=== PATIENT | male | born 1960 | race Hispanic/Latino ===

== ENCOUNTER 2018-07-16 03:17 | Emergency (ER) | payer BC ==
[2018-07-16] MEDS ORDERED: TETANUS & DIPHTHERIA TOX,ADULT 0.5 ML VIAL ONE (03:56)
--- NOTE | 2018-07-16 04:13 | EDPHYS ---
Physician Documentation [facility] Name: Serjio Aguillon Jr Age: 57 yrs Sex: Male : 1960 Arrival Date: 07/16/2018 Time: 03:20 Bed 6 Private MD: Tashi Sanderson E ED Physician Silvestre Cheek HPI: 07/16 03:48 This 57 yrs old Male presents to ER via Ambulatory with complaints of Finger gs Injury. 03:48 The patient or guardian reports a laceration, clean, 2 cm(s). The complaints affect the gs dorsal aspect of proximal phalanx of right middle finger. Context: The problem was sustained at home. Onset: The symptoms/episode began/occurred acutely. Modifying factors: The symptoms are alleviated by nothing, the symptoms are aggravated by nothing. Associated signs and symptoms: Pertinent negatives: numbness distally. Severity of symptoms: At their worst the symptoms were mild, in the emergency department the symptoms are unchanged. Historical: - Allergies: 03:38 No Known Allergies; bb - Home Meds: 03:38 None [Active]; bb - PMHx: 03:38 None; bb - PSHx: 03:38 None; bb - Immunization history:: Adult Immunizations not up to date. - Social history:: Smoking status: Patient/guardian denies using tobacco, Patient/guardian denies using alcohol, street drugs. - Ebola Screening: : No symptoms or risks identified at this time. ROS: 03:48 All other systems are negative. gs Exam: 03:48 Constitutional: The patient appears alert, awake. gs 03:48 Musculoskeletal/extremity: ROM: no acute changes, Circulation is intact in all extremities. Sensation intact. 03:48 Skin: injury, laceration(s), the wound is approximately 2 cm(s), with a depth of .05 cm(s), of the dorsal aspect of middle phalanx of right middle finger, that can be described as no foreign body, with mild bleeding, semi [place] flap laceration.. Vital Signs: 03:38 BP 169 / 85; Pulse 78; Resp 16 S; Temp 98.7(O); Pulse Ox 98% on R/A; Weight 95.25 kg bb (R); Height 6 ft. 0 in. (182.88 cm) (R); Pain 0/10; 04:23 BP 152 / 89; Pulse 74; Resp 16; Temp 98.7; Pulse Ox 97% on R/A; Pain 0/10; tl1 03:38 Body Mass Index 28.48 (95.25 kg, 182.88 cm) MDM: 03:47 Patient medically screened. 03:48 Data reviewed: vital signs, nurses notes. Response to treatment: the patient's symptoms gs have markedly improved after treatment. ED course: offered sutured pt said no wants taped and tetanus shot. 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 Exp: tl1 08/07/2020. Lot #: [id number]. } Route: IM; Site: left deltoid; 04:24 Follow up: Response: No adverse reaction; No change in condition tl1 Disposition: 07/16/18 04:13 Discharged to Home. Impression: Laceration without foreign body of right middle finger without damage to nail. - Condition is Stable. - Discharge Instructions: Laceration Care, Adult, Rcfy-ja-Enyc. - Work release form, Medication Reconciliation Form, Thank You Letter, Antibiotic Education, Prescription Opioid Use form. - Follow up: Private Physician; When: 2 - 3 days; Reason: Re-evaluation by your physician. Signatures: Elisabeth Mckeon RN RN Yenny Wallace RN RN 1 Silvestre Cheek MD MD Corrections: (The following items were deleted from the chart) 04:25 04:13 07/16/2018 04:13 Discharged to Home. Impression: Laceration without foreign body tl1 of right middle finger without damage to nail. Condition is Stable. Forms are Work release form, Medication Reconciliation Form, Thank You Letter, Antibiotic Education, Prescription Opioid Use. Follow up: Private Physician; When: 2 - 3 days; Reason: Re-evaluation by your physician. gs
--- NOTE | 2018-07-16 04:13 | ER ---
Nurse's Notes [facility] Name: Serjio Aguillon Jr Age: 57 yrs Sex: Male : 1960 Arrival Date: 07/16/2018 Time: 03:20 Bed 6 Private MD: Tashi Sanderson E Diagnosis: Laceration without foreign body of right middle finger without damage to nail Presentation: 07/16 03:36 Presenting complaint: Patient states: he accidentally cut himself with a box sealing machine feeder to bb the right middle finger approx 60 mins ago. Transition of care: patient was not received from another setting of care. Onset of symptoms was July 16, 2018. Risk Assessment: Do you want to hurt yourself or someone else? Patient reports no desire to harm self or others. Initial Sepsis Screen: Does the patient meet any 2 criteria? No. Patient's initial sepsis screen is negative. Does the patient have a suspected source of infection? No. Patient's initial sepsis screen is negative. Care prior to arrival: None. 03:36 Method Of Arrival: Ambulatory bb 03:36 Acuity: JARON 4 bb Triage Assessment: 03:38 General: Appears in no apparent distress. Behavior is calm, cooperative. Pain: Denies bb pain. EENT: No deficits noted. Neuro: Level of Consciousness is awake, alert, obeys commands, Oriented to person, place, time, situation. Cardiovascular: No deficits noted. Respiratory: Respiratory effort is even, unlabored. GI: No deficits noted. No signs and/or symptoms were reported involving the gastrointestinal system. Derm: Skin is pink, warm \T\ dry. Wound noted dorsal aspect of middle phalanx of right middle finger. Musculoskeletal: Circulation, motion, and sensation intact. Injury Description: Laceration sustained to dorsal aspect of middle phalanx of right middle finger is clean, 0.5 to 2.5 cm long, was sustained 30-60 minutes ago. a small amount of bleeding noted at this time. Historical: - Allergies: 03:38 No Known Allergies; bb - Home Meds: 03:38 None [Active]; bb - PMHx: 03:38 None; bb - PSHx: 03:38 None; bb - Immunization history:: Adult Immunizations not up to date. - Social history:: Smoking status: Patient/guardian denies using tobacco, Patient/guardian denies using alcohol, street drugs. - Ebola Screening: : No symptoms or risks identified at this time. Screenin:41 Abuse screen: Denies threats or abuse. Nutritional screening: No deficits noted. bb Tuberculosis screening: No symptoms or risk factors identified. Fall Risk None identified. Assessment: 03:41 Reassessment: No changes from previously documented assessment. see triage assessment. bb Vital Signs: 03:38 BP 169 / 85; Pulse 78; Resp 16 S; Temp 98.7(O); Pulse Ox 98% on R/A; Weight 95.25 kg bb (R); Height 6 ft. 0 in. (182.88 cm) (R); Pain 0/10; 04:23 BP 152 / 89; Pulse 74; Resp 16; Temp 98.7; Pulse Ox 97% on R/A; Pain 0/10; tl1 03:38 Body Mass Index 28.48 (95.25 kg, 182.88 cm) ED Course: 03:20 Patient arrived in ED. es 03:21 Tashi Sanderson MD is Private Physician. es 03:36 Silvestre Cheek MD is Attending Physician. 03:38 Triage completed. bb 03:38 Arm band placed on Patient placed in an exam room, on a stretcher, on pulse oximetry. bb Family accompanied patient. 03:41 Patient has correct armband on for positive identification. Bed in low position. Call bb light in reach. Adult w/ patient. Pulse ox on. NIBP on. 03:50 Yenny Wallace RN is Primary Nurse. tl1 03:56 No provider procedures requiring assistance completed. Patient did not have IV access tl1 during this emergency room visit. Dressings: 2x2 with coban dressing applied over steri strips. Wound care: to laceration located on dorsal aspect of middle phalanx of right middle finger was cleaned with soap and water. 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 Exp: tl1 08/07/2020. Lot #: [id number]. } Route: IM; Site: left deltoid; 04:24 Follow up: Response: No adverse reaction; No change in condition tl1 Outcome: 04:13 Discharge ordered by . 04:24 Discharged to home ambulatory. tl1 04:24 Condition: good 04:24 Discharge instructions given to patient, family, Instructed on discharge instructions, follow up and referral plans. wound care, Demonstrated understanding of instructions, follow-up care, wound care. 04:25 Patient left the ED. tl1 Signatures: Paty Britt Brenda, RN RN bb Yenny Wallace RN RN tl1 Silvestre Cheek MD MD
== END 2018-07-16 04:25 | disposition home or self-care (01) ==
LOC: ER 03:17
DX: S61.212A Laceration without foreign body of right middle finger without damage to nail, initial encounter (principal); W45.8XXA Other foreign body or object entering through skin, initial encounter; Y93.9 Activity, unspecified; Y92.009 Unspecified place in unspecified non-institutional (private) residence as the place of occurrence of the external cause; Z23 Encounter for immunization
CPT/HCPCS: 90714; 99283

== ENCOUNTER 2020-07-13 06:30 | Day surgery (SDC) | payer BC ==
--- NOTE | 2020-07-09 14:01 | RAD REPORT ---
EXAM DESCRIPTION: RAD - Chest Pa And Lat (2 Views) - 07/09/2020 1:50 pm CLINICAL HISTORY: pre oppatient pending hydro cell surgery, hypertension COMPARISON: February 2015 TECHNIQUE: Frontal and lateral views of the chest were obtained. FINDINGS: The lungs are clear of a peripheral mass consolidation. Interstitial pattern is not substa ntially different when accounting for a slightly more shallow inspiration on the current study. Inter stitial edema or infiltrate not suspected. Pericardial fat noted on the left. Trachea is midline. H eart size is normal and central vasculature is within normal limits. No pleural effusion or pneumoth orax seen. No acute bony finding noted. No aortic abnormality. IMPRESSION: No acute cardiopulmonary process. No significant change from comparison study.
[2020-07-13] MEDS ORDERED: CEFAZOLIN/SWI 1gm 1 GM/10 ML SYR ONE (06:59)
[2020-07-13] MEDS ORDERED: Ringers Lactate 1,000 ML IV ONE (06:59)
[2020-07-13] MEDS ORDERED: FENTANYL CITR 100 MCG/2 ML ONE ×2 (07:33→08:43)
[2020-07-13] MEDS ORDERED: propofoL 200 MG/20 ML VIAL IV ONE (07:33)
[2020-07-13] MEDS ORDERED: MIDAZOLAM HCL 2 MG/2 ML INJ ONE (07:34)
[2020-07-13] MEDS ORDERED: LIDOCAINE 2% MPF 5 ML VIAL ONE (07:34)
[2020-07-13] MEDS ORDERED: BUPIVACAINE 0.25% PF 30 ML VIAL ONE (07:36)
[2020-07-13] MEDS ORDERED: LIDOCAINE 1% MPF 30 ML VIAL ONE (07:36)
[2020-07-13] MEDS ORDERED: ONDANSETRON 4 MG/2 ML VIAL ONE (07:39)
[2020-07-13] MEDS ORDERED: EPHEDRINE SULF 50 MG/ML VIAL ONE (08:22)
[2020-07-13] MEDS ORDERED: BACITRACIN OINTMENT 15 GM TUBE TOP ONE (09:06)
[2020-07-13] MEDS ORDERED: HYDROCODONE/APAP 5/325 MG TAB PO PRN (09:29)
[2020-07-13] MEDS ORDERED: HYDROCODONE/APAP 5/325 MG TAB PO ONE (10:15)
[2020-07-13] MEDS ORDERED: HYDROCODONE/APAP 5/325 MG TAB ONE (10:23)
--- NOTE | 2020-07-13 10:25 | OP ---
Surgeon: ARAMIS LUDWIG Preoperative Diagnosis: Right hydrocele, large size. Postoperative Diagnosis: Right hydrocele, large size. Principal Procedure: Jaboulay hydrocelectomy. Indication For Procedure: Mr. Aguillon is a 59-year-old gentleman, who presented to the Urology Clinic with a massively sized right hydrocele that had been slowly growing over the last several months to years. It was nonpainful to him, though bulky and difficult to manage. As a result, he elected form al hydrocelectomy and presents today for that procedure. Description Of Procedure: The patient was consented in the preoperative holding area before being tr ansferred to the operative suite where general anesthesia was induced. He was given Ancef 1 g IV ant imicrobial prophylaxis and pneumo boots were provided for DVT prophylaxis. His scrotum was shaved an d then prepped using Betadine before being draped in standard fashion. A Meg's line incision was identified in the right hemiscrotum, approximately 3-4 cm in length and 0.25% Marcaine was instilled subcutaneously prior to an incision being made using a 15 blade, deepened through the skin and dermis . Then, using electrocautery, the subcutaneous tissues and dartos layers were divided taking care to divide all of the muscle layers before approaching the parietal layer of tunica vaginalis of the bul ging hydrocele sac. Once the sac had been reached, I then dissected circumferentially around the sac while it was still in situ within the scrotum. I then used an 18-gauge needle to puncture the sac a nteriorly and aspirate several 100 cc of fluid. When this was still slow going and the sac was still too large to be delivered through the incision that was made, I incised the opening even further and more rapidly decompressed the fluid until the hydrocele sac was able to be delivered out of the scro erika sac. I then dissected the remaining cremasteric attachments and dartos layers that were still at taching posteriorly and apically off the parietal layer of tunica vaginalis before incising the remai nder of the sac anteriorly in an anterior-posterior direction revealing the testis within. There was a bit of an unusual configuration and that there were actually 2 sacs with the bulk of the sac actua lly from the testis and a layer of parietal tunica vaginalis still on the anterior surface of the testis. This complex sac was then identified and was removed in its entirety until just the t estis was visible along with the cord structures. Just enough sac was left around the cord structure s in order to folded behind the cord structures and then plicated there. Using a 3-0 Vicryl suture i n a running and every third interlocking fashion, I then ligated the sac behind the cord structures i n a non-compressing fashion of the vascular pedicle. Once this was completely hemostatic, we copious ly irrigated the intrascrotal contents and a careful search for bleeding was undertaken. Any and all bleeding vessels were pinpoint fulgurated using DeBakey forceps and cautery in a bipolar fashion. O nce the area was completely hemostatic, I then delivered the testicle back into the scrotal sac and p laced a quarter-inch Omega drain through the inferior component of the incision well beneath the in cision inferiorly and allowing it to coil within the intrascrotal contents beneath the testis. This was sutured in place using a 3-0 nylon suture, and then the scrotal wall was closed. Initially, in g 3-0 Vicryl suture in a running fashion, the subdartos and cremasteric layers of the scrotum were li gated together and then the skin and subcutaneous tissues were ligated together and closed using 3-0 chromic suture dipped in bacitracin. The skin was closed using a baseball stitch. In the end, the s crotum was completely decompressed and the Omega drain was in place. He was cleansed of the Betadi ne prep and bacitracin was applied to the incision site. A fluff gauze and scrotal support were then applied and the patient was awakened from general anesthesia before being transferred to a stretcher and then to the recovery room in good condition. Complications: None. Discharge Disposition: He will be discharged home and maintain the Omega drain for the next 3-5 da ys before presenting to Urology Clinic to have it extracted. Followup of the pathology hopefully can be presented at that time. CHERELLE/LEIGHTON Voice ID: [id number] Report ID: [id number]
[2020-07-13 11:43] VITALS: BP 128/70; TEMP 96.9; O2SAT 99
--- NOTE | 2020-07-13 18:15 | EKG ---
Test Date: 2020-07-12 Test Time: 12:24:47 Lightning Rod Erector: CATRACHITO MEASUREMENT RESULTS: Intervals: Rate: 92 SD: 150 QRSD: 84 QT: 352 QTc: 435 [place]: P: 66 SD: 150 QRS: 36 T: 50 INTERPRETIVE STATEMENTS: Normal sinus rhythm Normal ECG Compared to ECG 03/15/2015 09:08:56 Sinus bradycardia no longer present Electronically Signed On 07-13-20 18:11:38 RESIDENTIAL SALES MANAGER by Rock Pressley
== END 2020-07-13 10:36 | disposition home or self-care (01) ==
LOC: OR 06:30
PROVIDERS: ATTEND Urology
PROC: 0VB60ZZ Excision of Right Tunica Vaginalis, Open Approach (ICD-10-PCS; principal; 2020-07-13 07:30)
DX: N43.3 Hydrocele, unspecified (principal); I10 Essential (primary) hypertension; M54.9 Dorsalgia, unspecified
CPT/HCPCS: 93005; 88302; 71046; 55040; J2704; J2250; J3010 ×2; J0690; J7120; J2405

== ENCOUNTER 2020-07-22 15:10 | Day surgery (SDC) | payer BC ==
--- NOTE | 2020-07-22 13:11 | RAD REPORT ---
EXAM DESCRIPTION: US - Scrotum Testicles - 07/22/2020 12:45 pm CLINICAL HISTORY: N49.2,Z87.438,Z98.890 COMPARISON: None FINDINGS: Right testicle measures 3.5 x 3.2 x 3.2 centimeters. Echotexture is mildly inhomogeneous. . Mildly increased blood flow Left testicle measures 4.3 x 2.3 x 3.1 centimeters. Echotexture is homogeneous. Normal blood flow 1.3 centimeter left spermatocele. Left epididymis normal blood flow. A 6.7 x 4.7 centimeter complex cystic mass lies superior to the right testicle. It is avascular. Mal tional 3.5 centimeter complex cystic mass inferior to the right testicle IMPRESSION: 6.7 x 4.7 centimeter complex cystic mass superior to the right testicle and 3.5 centimet er complex cystic mass inferior to the right testicle probably subacute hematoma. An inflammatory hyd rocele is another consideration Mildly increased blood flow right testicle may indicate an orchitis
[2020-07-22] MEDS ORDERED: Ringers Lactate 1,000 ML IV ONE (15:42)
[2020-07-22] MEDS ORDERED: CEFTRIAXONE/SWI 2gm 2 GM/20 ML SYR IVP ONE (16:00)
[2020-07-22] MEDS ORDERED: HYDROCODONE/APAP 10/325 TAB ONE (16:00)
[2020-07-22] MEDS ORDERED: BUPIVACAINE 0.25% PF 10 ML VIAL ONE (16:43)
[2020-07-22] MEDS ORDERED: FENTANYL CITR 100 MCG/2 ML ONE ×2 (16:50→17:29)
[2020-07-22] MEDS ORDERED: propofoL 200 MG/20 ML VIAL IV ONE (16:51)
[2020-07-22] MEDS ORDERED: LIDOCAINE 2% MPF 5 ML VIAL ONE (16:52)
[2020-07-22] MEDS ORDERED: KETOROLAC 30 MG/ML INJ ONE (17:23)
[2020-07-22] MEDS ORDERED: dexAMETHasone 10 MG/ML VIAL ONE (17:23)
[2020-07-22 19:07] VITALS: O2SAT 96
[2020-07-22 19:11] VITALS: BP 121/67; TEMP 97.3
--- NOTE | 2020-07-26 11:41 | OP ---
Surgeon: ARAMIS LUDWIG Preoperative Diagnosis: Scrotal hematoma. Postoperative Diagnosis: Scrotal reactive hemorrhagic fluid. Principle Procedures: 1.Right scrotal exploration. 2.Evacuation of fluid. 3.Washout of scrotum. 4.Placement of a closed suction drain. Indication For Procedure: Mr. Aguillon presented to the Urology Clinic in followup this week after und ergoing initial primary right hydrocelectomy on 07/13/2020. He had a Manjeet drain placed following that procedure initially and despite the [place] drain placement, he had some swelling of the right h emiscrotum when he was seen on followup earlier this week. It was nontender, and otherwise healthy-a ppearing, and since they reported the drainage had gone to minimal, I removed the Manjeet drain after several days of its taking place. He then presented today in followup to the clinic with complaints of significant discomfort and tenderness with movement. Also with concerns of low-grade temperature less than 100.0; so I recommended scrotal ultrasound prior to operative exploration and evacuation o f suspected hematoma versus abscess. He was started on ciprofloxacin 500 mg p.o. b.i.d. and given a 10-day prescription. Procedure In Detail: The patient was consented in the preoperative holding area before being transfe rred to the operative suite where general anesthesia was induced using an LMA. He was given ceftriax one 2 g IV antimicrobial prophylaxis and pneumo boots were provided for DVT prophylaxis. He was plac ed supine on the operative table, padded, and secured to the table appropriately. His genitalia were prepped with Betadine and draped in standard fashion. The case was begun using 0.25% Marcaine, inst illed subcutaneously in the region of the prior scrotal incision. The incision was then opened sharp ly using Metzenbaum scissors to divide the chromic suture and the underlying Vicryl suture closing th e dartos layers of the scrotum. Once the intrascrotal contents were reached, there was some mildly h emorrhagic fluid noted, but no pustular drainage and only minimal clot observed dependently. A cultu re was then taken of the soto of the scrotum and the fluid, and this was sent for microbiologic anal ysis. We then suction aspirated the fluid from within the scrotum and copiously irrigated the scrotu m with a liter of normal saline warm. The intrascrotal contents were surveyed, and they were healthy in appearance with no significant fibrinous debris or purulent discharge. The testis itself was nor mal in appearance with good vascular flow identified. As a result, I simply placed a 10-Pashto round JEFFREY drain in the dependent portion of the scrotum and wrapped it both inferiorly and superiorly aroun d the testis in order to more adequately drain and prevent recurrence of the reactive hydrocele fluid . I then closed the dartos layers using 3-0 Vicryl suture in a running fashion. The subcutaneous ti ssues were copiously irrigated using saline, and the JEFFERY drain was placed to vacuum suction. I then c losed the skin with 3-0 chromic suture dipped in bacitracin and then switched the vacuum suction to b ulb suction. The decompressed scrotum and the incision were healthy in appearance, and so fluff gauz e and scrotal support were applied. The patient was then awakened from general anesthesia, transferr ed to a stretcher, and then transferred to the recovery room in good condition. Complications: None. Discharge Disposition: The patient will be taught how to manage and record the fluid output from the JEFFREY drain over the course of the next few days. He will continue on the ciprofloxacin provided to [facility] while we await the results of the cultures to determine if any actual infectious organism was prese nt. Once the amount of drainage decreases significantly, and preferably less than 20-30 cc in 24 magui rs, we will plan to remove the JEFFREY drain in clinic. He was also instructed to sponge bathe the region and applied bacitracin/Neosporin while it heals. Fluff gauze and scrotal support were applied and s chandleruld be continued in the initial period. CHERELLE/LEIGHTON Voice ID: [id number] Report ID: [id number]
== END 2020-07-22 19:01 | disposition home or self-care (01) ==
LOC: OR 15:10
PROVIDERS: ATTEND Urology
PROC: 0V950ZZ Drainage of Scrotum, Open Approach (ICD-10-PCS; principal; 2020-07-22 17:00)
DX: N99.840 Postprocedural hematoma of a genitourinary system organ or structure following a genitourinary system procedure (principal); I10 Essential (primary) hypertension; M54.9 Dorsalgia, unspecified; G89.29 Other chronic pain
CPT/HCPCS: 87070; 87205 ×2; 87075; 87077 ×2; 87186 ×2; 76870; 54700; J2704; J3010 ×2; J1100; J0696; J7120

== ENCOUNTER 2024-06-29 04:47 | Emergency (ER) | payer BC ==
--- OUTSIDE RECORDS SUMMARY | 2024-06-29 04:50 | XMS REPORT | Continuity of Care Document ---
Author Name Unknown Address [address] [facility] [address] [place] [address] [facility] thconnect Address [address] [facility] [place] [address] Care Team Providers Care Inspector Hairspring Truing Name Role Phone Nataly Lizama Attending Clinician Unavail able Payers Payer Name Policy Type Policy Number Effective Date Expirati on Date Source [facility] 6 [id number] 2023 00:00:00 [facility] Problems Condition Name Condition Details Condition Category Status Onset Date Resolution Date Last Treatment Date Treating Clinician Comments Source [id number] Mixed hyperlipid emia Problem [facility] Hydrocele Hydrocele Problem Comm on [facility] [id number] Essential hypertensi on Problem [facility] [id number] Right hydrocele Problem [facility] [id number] Epididymit is, right Problem [facility] [id number] BMI 36.0-36.9, adult Problem [facility] [id number] Arthritis of right knee Problem [facility] [id number] Morbid (severe) obesity due to excess calories Problem [facility] [id number] Severe episode of recurrent major depressive disorder, without psychotic features Problem [facility] [id number] Scrotal abscess Problem [facility] [id number] Other spondylosi s with radiculopa thy, lumbar region Problem [facility] [id number] Other specified postproced ural states Problem [facility] [id number] Personal history of other diseases of male genital organs Problem [facility] Social History Social Habit Start Date Stop Date Quantity Comments Source History of Tobacco Use [facility] Sex Assigned At [facility] Smoking Status Start Date Stop Date Source Never Smoker [facility] Medications Ordered Medication Name Filled Medication Name Start Date Stop Date Current Medication? Ordering Clinician Indication Dosage Frequency Signature (SIG) Comments Components Source Fish Oil High Potency 1000 MG Fish Oil High Potency 1000 MG 4- 00:00: 00 No 1{capsu le} TID Fish Oil High Potency 1000 MG Cyclobenzap rine HCl 10 MG Cyclobenzap rine HCl 10 MG - 00:00: 00 No 1{table t_at_be dtime_a s_neede d} QD Cyclobenza christine HCl 10 MG Furosemide 20 MG Furosemide 20 MG 3- 00:00: 00 No 1{table t} QD Furosemide 20 MG Ketorolac Tromethamin e Ketorolac Tromethamin e 2023-- 00:00: 00 No 60mg [facility] Tylenol Arthritis Pain Tylenol Arthritis Pain No Tylenol Arthritis Pain Losartan Potassium-H CTZ 100-12.5 MG Losartan Potassium-H CTZ 100-12.5 MG No 1{table t} QD Losartan Potassium- HCTZ 100-12.5 MG Rybelsus 3 MG Rybelsus 3 MG No QD Rybelsus 3 MG Atorvastati n Calcium 20 MG Atorvastati n Calcium 20 MG No QD Atorvastat in Calcium 20 MG buPROPion HCl ER (XL) 300 MG buPROPion HCl ER (XL) 300 MG No buPROPion HCl ER (XL) 300 MG Immunizations Ordered Immunization Name Filled Immunization Name Date Status Comments Source Prevnar 20 (PCV20) Prevnar 20 (PCV20) Unknown Completed [facility] Prevnar 20 (PCV20) Prevnar 20 (PCV20) Unknown Completed [facility] Fluad (IIV) - SDS - 0.5mL Fluad (IIV) - SDS - 0.5mL Unknown Completed [facility] Vital Signs Vital Name Observation Time Observation Value Comments S ource temperature 2024-06-18 10:00:00 98.3 [degF] Com [facility] bmi 2024-06-18 10:00:00 35.78 kg/m2 Comm on [facility] oximetry 2024-06-18 10:00:00 99 % Commo n [facility] respiratory rate 2024-06-18 10:00:00 16 /min [facility] blood pressure systolic 2024-06-18 10:00:00 138 mm[Hg] [facility] blood pressure diastolic 2024-06-18 10:00:00 80 mm[Hg] [facility] height 2024-06-18 10:00:00 70 [in_i] Commo n [facility] weight 2024-06-18 10:00:00 249.4 [lb_av] Co [facility] height 2023-12-13 16:00:00 70 [in_i] Commo n [facility] weight 2023-12-13 16:00:00 251.2 [lb_av] Co [facility] temperature 2023-12-13 16:00:00 98.2 [degF] Com [facility] bmi 2023-12-13 16:00:00 36.04 kg/m2 Comm on [facility] oximetry 2023-12-13 16:00:00 98 % Commo n [facility] respiratory rate 2023-12-13 16:00:00 16 /min [facility] blood pressure systolic 2023-12-13 16:00:00 140 mm[Hg] [facility] blood pressure diastolic 2023-12-13 16:00:00 88 mm[Hg] [facility] height 2023-11-08 10:40:00 70 [in_i] Commo n [facility] weight 2023-11-08 10:40:00 250 [lb_av] Comm on [facility] temperature 2023-11-08 10:40:00 98.3 [degF] Com mon [facility] bmi 2023-11-08 10:40:00 35.87 kg/m2 Comm on [facility] oximetry 2023-11-08 10:40:00 96 % Commo n [facility] respiratory rate 2023-11-08 10:40:00 16 /min [facility] blood pressure systolic 2023-11-08 10:40:00 152 mm[Hg] [facility] blood pressure diastolic 2023-11-08 10:40:00 75 mm[Hg] [facility] Encounters Start Date/Time End Date/Time Encounter Type Admission Type Attending Clinicians Care Facility Care Department Encounter ID Source 2023-11-08 10:09:01 Outpatient Nataly Lizama [facility] [id number] [facility] 2024-06-18 00:00:00 2024-06-18 00:00:00 OFFICE VISIT ESTAB PT LEVEL 4 [facility] [id number] [facility] 2024-06-11 00:00:00 2024-06-11 00:00:00 (TEL) [facility] [id number] [facility] 2024-06-08 00:00:00 2024-06-08 00:00:00 (TEL) [facility] [id number] [facility] 2023-12-17 00:00:00 2023-12-17 00:00:00 (TEL) [facility] [id number] [facility] 2023-12-13 00:00:2023-12-13 00:00:00 PREV VISIT EST AGE 65 & OVER [facility] [id number] [facility] 2023-11-08 00:00:00 2023-11-08 00:00:00 OFFICE VISIT NEW PT LEVEL 4 [facility] [id number] [facility]
--- NOTE | 2024-06-29 05:17 | EDPHYS ---
Physician Documentation [facility] Name: Serjio Aguillon Jr Age: 63 yrs Sex: Male : 1960 Arrival Date: 06/29/2024 Time: 04:47 Bed 15 Private MD: ED Physician Asif Sharma HPI: 06/29 05:16 This 63 yrs old Male presents to ER via Unassigned with complaints of mouth ec2 pain. 05:16 Patient arrives today for left lower mouth pain. States that he had some irritation and ec2 is having pain at the left lower base of the mouth underneath the tongue. No fevers or chills, no nausea or vomiting. He states he is taken Tylenol with some improvement in symptoms.. Historical: - Allergies: 05:31 No Known Allergies; kj2 - Immunization history:: Adult Immunizations unknown. - Infectious Disease History:: Denies. - Social history:: Smoking status: Patient denies any tobacco usage or history of. ROS: 05:16 Constitutional: as per hpi ec2 Exam: 05:16 Constitutional: GEN: NAD Head: atraumatic Eyes: EOMI Ears: External ears are normal. ec2 Mouth: Scant amount of erythema and induration noted at the left salivary gland. CV: regular rate LUNGS: no respiratory distress ABD: non-distended SKIN: no evidence of rashes MSK: no evidence of trauma Vital Signs: 05:15 BP 151 / 81; Pulse 72; Resp 20; Temp 98.4; Pulse Ox 100% ; Weight 109.77 kg; Height 6 kj2 ft. 2 in. ; Pain 9/10; 05:15 BP 151 / 81; Pulse 71; Resp 20; Temp 98.4; Pulse Ox 95% on R/A; Weight 109.77 kg; kj2 Height 6 ft. 2 in. ; Pain 9/10; 05:48 BP 148 / 82; Pulse 68; Resp 18; Temp 98.4; Pulse Ox 99% on R/A; kj2 05:15 Body Mass Index 31.07 (109.77 kg, 187.96 cm) kj2 05:15 Pain Scale: Adult kj2 05:15 Pain Scale: Adult kj2 MDM: 05:09 Medical Screening Exam initiated ec2 05:16 Data reviewed: vital signs. ED course: patient arrives today for oral pain. Examination ec2 remarkable for sialoadenitis. Will check the patient on Augmentin, instructed the patient on sialagogues. Return precautions given.. 06/29 05:15 Order name: Cuca. Order: swish and spit viscous lidocaine; Complete Time: 05:47 ec2 Administered Medications: 05:47 Drug: Viscous Lidocaine Mucous Membrane Liquid (4 %) 10 ml Mucous Membrane once Route: kj2 Mucous Membrane; 05:47 Follow up: Response: No adverse reaction; Medication administered at discharge. kj2 05:47 Drug: Amoxicillin-Clavulanate PO 875 mg PO once Route: PO; kj2 05:47 Follow up: Response: No adverse reaction; Medication administered at discharge. kj2 Disposition Summary: 06/29/24 05:16 Discharge Ordered Notes: Location: Home ec2 Condition: Stable ec2 Diagnosis - Acute sialoadenitis ec2 Followup: ec2 - With: Private Physician - When: - Reason: Re-evaluation by your physician Discharge Instructions: - Discharge Summary Sheet ec2 - Salivary Gland Infection ec2 Forms: - Medication Reconciliation Form ec2 - Antibiotic Education ec2 - Prescription Opioid Use ec2 - Patient Portal Instructions ec2 - Leadership Thank You Letter ec2 Prescriptions: - Augmentin 875-125 mg Oral tablet - take 1 tablet ORAL route every 12 hours for 7 days; 14 tablet; Refills: 0, ec2 Product Selection Permitted Signatures: Asif Sharma MD MD ec2 Alissa Hurt RN RN kj2
[2024-06-29] MEDS ORDERED: AMOX/K CLAV 875 MG TAB ONE (05:43)
[2024-06-29] MEDS ORDERED: LIDOCAINE VISCOUS 2% 10ML ORAL SOLN ONE (05:43)
--- NOTE | 2024-06-29 05:52 | ER ---
Nurse's Notes [facility] Name: Serjio Aguillon Jr Age: 63 yrs Sex: Male : 1960 Arrival Date: 06/29/2024 Time: 04:47 Bed 15 Private MD: Diagnosis: Acute sialoadenitis Presentation: 06/29 05:15 Chief complaint: Patient states: gums are swollen and hurt. Coronavirus screen: At this kj2 time, the client does not indicate any symptoms associated with coronavirus-19. Ebola Screen: No symptoms or risks identified at this time. Initial Sepsis Screen: Does the patient meet any 2 criteria? No. Patient's initial sepsis screen is negative. Does the patient have a suspected source of infection? No. Patient's initial sepsis screen is negative. Risk Assessment: Do you want to hurt yourself or someone else? Patient reports no desire to harm self or others. Onset of symptoms was June 28, 2024. 05:15 Method Of Arrival: Ambulatory kj2 05:15 Acuity: JARON 3 kj2 Triage Assessment: 05:15 General: Appears in no apparent distress. uncomfortable, Behavior is calm, cooperative. kj2 Pain: Complains of pain in mouth, gums Pain currently is 9 out of 10 on a pain scale. 05:15 Neuro: Level of Consciousness is awake, alert, obeys commands, Oriented to person, kj2 place, time, situation. Cardiovascular: Patient's skin is warm and dry. Respiratory: Airway is patent Respiratory effort is even, unlabored. GI: No signs and/or symptoms were reported involving the gastrointestinal system. : No signs and/or symptoms were reported regarding the genitourinary system. Historical: - Allergies: 05:31 No Known Allergies; kj2 - Immunization history:: Adult Immunizations unknown. - Infectious Disease History:: Denies. - Social history:: Smoking status: Patient denies any tobacco usage or history of. Screenin:15 [facility] ED Fall Risk Assessment (Adult) History of falling in the last 3 months, kj2 including since admission No falls in past 3 months (0 pts) Confusion or Disorientation No (0 pts) Intoxicated or Sedated No (0 pts) Impaired Gait No (0 pts) Mobility Assist Device Used No (0 pt) Altered Elimination No (0 pt) Score/Fall Risk Level 0 - 2 = Low Risk Maintained a safe environment, Hourly rounding (assess needs \T\ fall precautionary measures) done. Abuse screen: Denies threats or abuse. Denies injuries from another. Nutritional screening: No deficits noted. Tuberculosis screening: No symptoms or risk factors identified. Assessment: 05:20 General: see triage assessment. kj2 Vital Signs: 05:15 BP 151 / 81; Pulse 72; Resp 20; Temp 98.4; Pulse Ox 100% ; Weight 109.77 kg; Height 6 kj2 ft. 2 in. ; Pain 9/10; 05:15 BP 151 / 81; Pulse 71; Resp 20; Temp 98.4; Pulse Ox 95% on R/A; Weight 109.77 kg; kj2 Height 6 ft. 2 in. ; Pain 9/10; 05:48 BP 148 / 82; Pulse 68; Resp 18; Temp 98.4; Pulse Ox 99% on R/A; kj2 05:15 Body Mass Index 31.07 (109.77 kg, 187.96 cm) kj2 05:15 Pain Scale: Adult kj2 05:15 Pain Scale: Adult kj2 ED Course: 04:50 Patient arrived in ED. ec2 05:03 Asif Sharma MD is Attending Physician. ec2 05:15 Arm band placed on Patient placed in an exam room, on a stretcher. kj2 05:15 Patient has correct armband on for positive identification. Call light in reach. Side kj2 rails up X 1. Adult w/ patient. Provided Education on: call light, fall precautions. 05:29 Alissa Hurt RN is Primary Nurse. kj2 05:31 Triage completed. kj2 05:38 No provider procedures requiring assistance completed. Patient did not have IV access kj2 during this emergency room visit. Administered Medications: 05:47 Drug: Viscous Lidocaine Mucous Membrane Liquid (4 %) 10 ml Mucous Membrane once Route: kj2 Mucous Membrane; 05:47 Follow up: Response: No adverse reaction; Medication administered at discharge. kj2 05:47 Drug: Amoxicillin-Clavulanate PO 875 mg PO once Route: PO; kj2 05:47 Follow up: Response: No adverse reaction; Medication administered at discharge. kj2 Medication: 05:37 VIS not applicable for this client. kj2 Outcome: 05:16 Discharge ordered by . ec2 05:38 Discharged to home ambulatory, kj2 05:38 Condition: stable 05:38 Discharge instructions given to Instructed on discharge instructions, follow up and referral plans. Demonstrated understanding of instructions, follow-up care, 05:51 Patient left the ED. kj2 Signatures: Asif Sharma MD MD ec2 Alissa Hurt, RN RN kj2
[2024-06-29 05:56] VITALS: TEMP 98.4
[2024-06-29 05:57] VITALS: BP 148/82; O2SAT 99
== END 2024-06-29 05:51 | disposition home or self-care (01) ==
LOC: ER 04:47
DX: K11.20 Sialoadenitis, unspecified (principal)
CPT/HCPCS: 99283